=== PATIENT | male | born 1960 ===

== ENCOUNTER 2018-11-01 08:56 | Emergency (ER) | payer OTHER ==
[2018-11-01 09:05] VITALS: BP 140/82
[2018-11-01] MEDS ORDERED: DOXYCYCLINE HYCLATE 100 MG TABLET PO ONE (09:50)
--- NOTE | 2018-11-01 09:54 | ER Document Report ---
HPI - HPI Patient complains to provider of: tick bite Time Seen by Provider: 11/01/18 09:40 Pain Level: 1 Context: 58-year-old male visiting from [place] presents the emergency department with chief complaint of tick bite. He said that he does not know if he got it from a dog but his partner he was here with said she was bitten and was her last night and proceed prophylaxis. He said that he does not know how long the bug was attached but says he got to bites, one on the right gluteus muscle and one on his anterior right ankle. He denies any fevers, bone aches, nausea, vomiting, rash, dizziness or lightheadedness, headache. No other complaints. Past Medical History - Social History Smoking Status: Never Smoker Family History: None Vertical Provider Document - CONSTITUTIONAL Notes: PHYSICAL EXAMINATION: Reviewed vital signs and charting by RN GENERAL: Alert, interacts well. No acute distress. HEAD: Normocephalic, atraumatic. EYES: Pupils equal, round. Extraocular movements intact. ENT: Oral mucosa moist, tongue midline. NECK: Full range of motion. Trachea midline. EXTREMITIES: Moves all 4 extremities spontaneously. No edema, No cyanosis. PSYCH: Normal affect, normal mood. SKIN: Warm, dry, normal turgor. No rashes or lesions noted. - INFECTION CONTROL TRAVEL OUTSIDE OF THE [place] IN LAST 30 DAYS: No Course - Re-evaluation Re-evalutation: 11/01/18 09:51 Well-appearing and no evidence of any tick bite or residual bugs. Patient showed me a picture of the offending arthropod unclear if it was a take or not. I will give him prophylaxis doxycycline 200 mg p.o. 1 time. I gave him strict return precautions and what to look out for for [place] spotted fever and/or Lyme disease. Patient is afebrile does not present with any concerning signs. It does not appear that the insect was engorged or attached for greater than 36 hours. Stable for discharge. - Vital Signs Vital signs: Temp Pulse Resp BP Pulse Ox 97.6 F 70 18 140/82 H 96 11/01/18 09:04 11/01/18 09:04 11/01/18 09:04 11/01/18 09:04 11/01/18 09:04 Discharge - Discharge Clinical Impression: Bug bite Qualifiers: Encounter type: initial encounter Qualified Code(s): W57.XXXA - Bitten or stung by nonvenomous insect and other nonvenomous arthropods, initial encounter Disposition: HOME, SELF-CARE Additional Instructions: You were seen in the emergency department this morning for a bug bite. It is unclear how long the bug was attached but regardless we have treated you for prophylaxis for Lyme disease and/or [place] spotted fever. We have given you doxycycline 200 mg orally 1 time here in the emergency department. If you do receive a bite in the next 2 weeks please try to note how long you think the bug was attached and feeding, if you develop a "bull's-eye" rash, develop severe headache, develop joint aches, or become generally ill. If this is the case you should return to the emergency department or an urgent care for follow on evaluation. If you develop severe headache, photophobia, acute shortness of breath or severe chest pain, intractable nausea or vomiting please return to the emergency department for reevaluation.
== END 2018-11-01 10:01 | disposition home or self-care (01) ==
LOC: ER 08:56
DX: S30.860A Insect bite (nonvenomous) of lower back and pelvis, initial encounter (principal); S90.561A Insect bite (nonvenomous), right ankle, initial encounter; W57.XXXA Bitten or stung by nonvenomous insect and other nonvenomous arthropods, initial encounter
CPT/HCPCS: 99281